=== PATIENT | female | born 1965 | race Caucasian/White ===

== ENCOUNTER → 2016-08-21 | Outpatient (CLI) | payer BC | LOC: FIMAGING 09:13 | PROVIDERS: ATTEND Family Medicine | DX: H53.2 Diplopia (principal); R51 Headache ==

== ENCOUNTER → 2017-03-31 | Outpatient (CLI) | payer BC | LOC: BRMIMAGING 14:38 | PROVIDERS: ATTEND Obstetrics & Gynecology | DX: Z12.31 Encounter for screening mammogram for malignant neoplasm of breast (principal) | CPT/HCPCS: G0202 ==